=== PATIENT | female | born 1965 | race Caucasian/White ===

== ENCOUNTER 2018-10-11 12:08 | Outpatient (CLI) | payer BC, SELFPAY ==
[2018-10-11 13:04] LABS: Hemoglobin A1C 5.4 % (4.5-6.2)
[2018-10-11 13:23] LABS: Cholesterol 270 mg/dL (50-200); Glucose 86 mg/dL (70-100); HDL Cholesterol 75 mg/dL (40-60); LDL CHOLESTEROL 188 mg/dL (<100); Triglyceride 83 mg/dL (30-150)
== END 2018-10-11 12:28 ==
PROVIDERS: PCP Emergency Medicine; Visit Provider Obstetrics & Gynecology Gynecology
DX: Z00.00 Encounter for general adult medical examination without abnormal findings (principal); Z13.1 Encounter for screening for diabetes mellitus; Z13.220 Encounter for screening for lipoid disorders
CPT/HCPCS: 36415; 80061; 82947; 83721; 83036

== ENCOUNTER 2019-02-12 07:15 | Outpatient (CLI) | payer BC, SELFPAY ==
[2019-02-12 08:06] LABS: Abs Immature Grans 0.01 k/cumm (0.0-0.09); Absolute Basophil Count 0.04 k/cumm (0.0-0.2); Absolute Eosinophil Count 0.16 k/cumm (0.0-0.7); Absolute Lymphocyte Count 2.03 k/cumm (1.2-3.4); Absolute Monocyte Count 0.47 k/cumm (0.11-0.7); Absolute Neutrophil Count 2.93 k/cumm (1.2-6.7); Basophils % 0.7; Eosinophils % 2.8; HCT 41.4 % (36.0-46.0); HGB 13.5 g/dL (12.0-15.5); Immature Grans % 0.2; Mean Corp. HGB Concentration 32.6 g/dL (32.0-36.0); Mean Corpuscular Hemoglobin 31.2 pg (27.0-33.0); Mean Corpuscular Volume 95.6 fL (80-95); Mean Platelet Volume 10.5 fL (8.0-11.0); Monocytes % 8.3; Platelet Count 215 x1000/uL (130-400); RBC 4.33 m/cumm (4.00-5.20); RBC Distribution Width 12.7 % (11.7-14.6); White Blood Cell Count 5.64 k/cumm (4.4-10.8)
[2019-02-12 09:28] LABS: Iron 88 ug/dL (50-175); Total Iron Binding Capacity 333 ug/dL (250-450); Transferrin Sat 26 % (15-50)
[2019-02-12 09:43] LABS: ALT 30 U/L (12-78); AST 14 U/L (15-37); Albumin 3.7 g/dL (3.4-5.0); Alkaline Phosphatase 71 U/L (46-116); Anion Gap 8.8 mmol/L (3-11); BUN 13 mg/dL (7-18); CO2 30.2 mmol/L (21.0-32.0); CREATININE 0.81 mg/dL (0.55-1.02); Calcium 9.4 mg/dL (8.5-10.1); Chloride 104 mmol/L (98-107); Cholesterol 267 mg/dL (50-200); Glucose 95 mg/dL (70-100); HDL Cholesterol 84 mg/dL (40-60); LDL CHOLESTEROL 164 mg/dL (<100); Potassium 4.4 mmol/L (3.5-5.1); Sodium 143 mmol/L (136-145); TSH (W/Ref FT4) 3.37 uIU/mL (0.358-3.74); Total Protein 7.7 g/dL (6.4-8.2); Triglyceride 84 mg/dL (30-150)
== END 2019-02-12 07:35 ==
PROVIDERS: PCP Internal Medicine; Visit Provider Internal Medicine
DX: R42 Dizziness and giddiness (principal); R50.9 Fever, unspecified; E01.0 Iodine-deficiency related diffuse (endemic) goiter
CPT/HCPCS: 36415; 80053; 80061; 83721; 83540; 83550; 84443; 85025

== ENCOUNTER 2019-06-28 03:29 | Outpatient (REF) | payer BC, SELFPAY | END 2019-06-28 03:49 | LOC: LBN 03:29 | PROVIDERS: PCP Internal Medicine; Visit Provider Obstetrics & Gynecology Gynecology | DX: R30.0 Dysuria (principal) | CPT/HCPCS: 87077; 87086; 87186 ==

== ENCOUNTER 2019-08-14 12:02 | Outpatient (CLI) | payer BC, SELFPAY ==
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
--- NOTE | 2019-08-14 12:30 | DI.RAD_ITS ---
EXAM: XR FOOT LT COMPLETE INDICATION: pain R52. COMPARISON: No exams were available for comparison TECHNIQUE: 2D digital imaging was performed. FINDINGS: No fracture or dislocation seen. There are no significant degenerative changes. No bony erosions s een. IMPRESSION: Negative left foot.
== END 2019-08-14 12:22 ==
PROVIDERS: PCP Internal Medicine; Visit Provider Internal Medicine
DX: M79.672 Pain in left foot (principal); M79.671 Pain in right foot; M25.512 Pain in left shoulder; R07.89 Other chest pain
CPT/HCPCS: 71046; 73030; 73630

== ENCOUNTER 2020-09-11 14:42 | Outpatient (REF) | payer BC, SELFPAY ==
--- NOTE | 2020-09-11 14:20 | PAPFT_PTH ---
PATIENT: Aiyana Damian LOC: [facility] U#:[id number] AGE/SX: 54/F ROOM: RE09/11/[address]: Odessa Oscar : 1965 BED: DIS: 09/11/2020 SPEC #: [id number] RECD: 09/11/20 16:00 STATUS: MAURILIO REMichael #: [id number] JORDAN: 09/11/20 14:[address]: Odessa Oscar DEPT: [facility] Cytology RECD BY: Alicia Fernandez ENTERED: 09/11/20 16:01 SP TYPE: PAPFT OTHR DR: Shea Huff, PhD DATABASE MANAGEMENT SYSTEM SPECIALIST Tissues: 1 - CX/ENDOCX FOR PAP SMEARS Procedures: PAP THIN PREP/UVM Screening HPV DNA PROBE Comments: [id number] ([facility])
== END 2020-09-11 15:02 ==
LOC: LBN 14:42
PROVIDERS: PCP Nurse Practitioner; Visit Provider Obstetrics & Gynecology Gynecology
DX: Z12.4 Encounter for screening for malignant neoplasm of cervix (principal); Z11.51 Encounter for screening for human papillomavirus (HPV)
CPT/HCPCS: 88142; 87624

== ENCOUNTER 2020-09-15 02:03 | Outpatient (CLI) | payer BC, SELFPAY ==
[2020-09-15 11:02] LABS: Calculated LDL 202 mg/dL (<100); Cholesterol 311 mg/dL (<200); HDL Cholesterol 84 mg/dL (40-60); Triglyceride 128 mg/dL (<150)
== END 2020-09-15 02:23 ==
PROVIDERS: PCP Nurse Practitioner; Visit Provider Obstetrics & Gynecology Gynecology
DX: E78.5 Hyperlipidemia, unspecified (principal)
CPT/HCPCS: 36415; 80061

== ENCOUNTER 2021-01-15 09:28 | Emergency (ER) | payer BC, SELFPAY ==
[2021-01-15] VITALS (48 sets, daily range): BP systolic 131–182; BP diastolic 75–97; PULSE 54–85; RESP 9–23; TEMP 36.6; O2SAT 96–100
--- NOTE | 2021-01-15 09:30 | RT.EKG_ITS ---
APPROVED REPORT Exam: Resting ECG Patient Location: E HR:55 bpm ECG Measurements Heart Rate 55 AXIS WY 149 P 42 QRSd 81 QRS 26 QT 427 T 30 QTc 409 Conclusion Sinus bradycardia...rate< 60 I have reviewed and interpreted ECG and agree with software generated interpretation. Otherwise normal ECG
--- NOTE | 2021-01-15 09:45 | DI.CT_ITS ---
EXAM: CT THORAX ABD/PEL CTA CLINICAL HISTORY: fam hx of AAA, pt with chest pain. TECHNIQUE: Imaging Protocol: Axial CT angiography was performed with multi-slice acquisition and mu lti-planar and/or 3D reconstructions. CONTRAST MATERIAL: Intravenous: Omnipaque 350 Contrast volume:100 ml COMPARISON: No exams were available for comparison FINDINGS: CHEST: Pulmonary Arteries: No evidence of filling defect to suggest pulmonary emboli. Tracheobronchial tree: Patent where visualized. Mediastinum and Megan: No dominant adenopathy or fluid collection. Pulmonary parenchyma: No consolidation or dominant measurable mass. No architectural distortion. Pleura: No effusion or pneumothorax. Heart: The heart is not dilated. No coronary artery calcifications are seen. Aorta: Thoracic aorta non-dilated. Bones: Normal. ABDOMEN: Liver: Normal density. No measurable mass. Portal, Superior Mesenteric, and Splenic Veins: Unremarkable. Gallbladder and Biliary Tract: No radiodense calculus or dilation. Pancreas: Normal density, no abnormal calcifications or inflammatory process. Spleen: Normal. Adrenals: No masses seen. Kidneys: Normal size, contour and axis. No radiodense stones or obstructive uropathy. No masses seen. Abdominal Aorta: Abdominal portion non-dilated. Minimal calcification distally. Bowel: No obstruction or bowel wall thickening. Appendix is unremarkable. Peritoneal Cavity: No ascites, collection or mesenteric inflammatory response. Lymph Nodes: Within normal limits. Bones: Unremarkable. Soft Tissues: Unremarkable. PELVIS: Bladder: Symmetric distention, no gross wall thickening. Reproductive Organs: Unremarkable as visualized. Lymph Nodes: Within normal limits. Bones: Within normal limits. IMPRESSION: 1. No evidence of pulmonary embolism. Normal diameter aorta without evidence of dissection. 2. No acute abdominal or pelvic process. RADIATION DOSE DELIVERED: 1,045.52mGy.cm Total DLP DATA REPOSITORY: All CT scans at this facility are submitted to the National Radiology Data Registry (NRDR) Dose Index Registry (DIR) with the [employer] (ACR). RADIATION OPTIMIZATION: All CT scans at this facility use at least one of these dose optimization te chniques: automated exposure control; mA and/or kV adjustment per patient size (includes targeted exa ms where dose is matched to clinical indication); or iterative reconstruction.
[2021-01-15 10:11] LABS: Absolute Basophil Count 0.04 10^3/uL (0.0-0.2); Absolute Eosinophil Count 0.06 10^3/uL (0.0-0.7); Absolute Lymphocyte Count 2.39 10^3/uL (1.2-3.4); Absolute Monocyte Count 0.42 10^3/uL (0.1-0.8); Absolute Neutrophil Count 2.31 10^3/uL (1.2-6.7); Basophils % 0.8; Eosinophils % 1.1; HCT 40.8 % (36.0-46.0); HGB 13.5 g/dL (11.2-15.7); Lymphocytes % 45.8; MCH 31.9 pg (27.0-33.0); MCHC 33.1 % (32.0-36.0); MCV 96.5 fL (80-95); MPV 10.5 fL (8.0-11.0); Neutrophils % 44.3; Nucleated RBC 0 %; Platelet Count 255 10^3/uL (130-400); RBC 4.23 10^6/uL (3.93-5.22); RDW-SD 42.5 fL; WBC 5.22 10^3/uL (4.4-10.8)
--- NOTE | 2021-01-15 10:35 | ED.GENADUL_ITS ---
Discharge Plan Discharge Details Chief Complaint: Chest Pain Clinical Impression: Chest pain in adult Primary Care Provider: Shea Huff ED Provider: Patricia Holliday Home Meds and New Rx's Prescriptions: No Action cyanocobalamin (vitamin B-12) [Vitamin B-12] 1,000 MCG tablet 1,000 mcg PO DAILY RF: 0 Discharge Instructions Instructions: Chest Pain (ED) Additional Instructions: Please follow-up with your primary care physician on Monday Return with worsening pain, shortness of breath, or with any new or progressing symptoms Follow-up for your outpatient stress test and return earlier should you have new or worsening complaints Medical Decision Making Patient is alert, pain-free, pleasant in demeanor Heart score of 3, she will need close outpatient follow-up She does have a primary care physician I will order an outpatient stress test She will return should she have worsening or return of pain CTA chest abdomen pelvis did not show acute pathology per radiology interpretation, specifically no evidence of aneurysm Pain-free throughout the entirety of exam Do not give aspirin upon arrival as waiting for CTA T- troponins, 2 - EKG Stress test ordered in the outpatient setting, low threshold to return with new or worsening complaints Discharged home in stable condition, pain-free Differential Diagnosis Differential Diagnosis: Angina, aortic dissection, pleurisy, anxiety HPI This 55-year-old female with history of tendinitis, hyperlipidemia presents with report of chest pain that started at approximately 830 while patient was seated for mass. She denies any associated shortness of breath. She states she felt lightheaded when the symptoms began and mildly nauseous. She states she got intermittent chest pain for the past several months, nonexertional from a partial control. She denies any abdominal pain. She states the pain started in her back and radiated horizontally and went into her chest and also radiated horizontally. She states it lasted approximately 45 minutes but not resolved completely. She states the pain has never been significant before. She has a history of hyperlipidemia and was not started on medication for this. Does not currently have a primary care physician that she is actually 14. She states she had a stress test in her 20s as her brother at age 35. Sounds like he had a heart attack secondary to renal complication. Aunt reportedly at age 55 from a myocardial infarction. Mother has history of atrial fibrillation and father reportedly had an abdominal aortic aneurysm that ruptured which she succumbed at age 68. She does not smoke, drink alcohol, or use any illicit drugs. She denies any calf pain or swelling, recent flights, surgeries, long drives. General Date/Time Provider Initiated Documentation: 01/15/21 09:34 . Related Data Home Medications Medication Instructions Recorded Confirmed cyanocobalamin (vitamin B-12) 1,000 mcg PO DAILY 01/29/16 01/15/21 [Vitamin B-12] Allergies Allergy/AdvReac Type Severity Reaction Status Date / Time ibuprofen [From Motrin] AdvReac Intermediate Vomitting Unverified 01/15/21 09:36 Sulfa (Sulfonamide AdvReac Nausea/rosangela Unverified 01/15/21 09:36 Antibiotics) iness General Stated Complaint: Chest Pain JESSICA: 2 Review of Systems Narrative: Review of systems negative x7 aside from medication in HPI [facility] Medical History (Updated 01/15/21 @ 13:32 by ABHISHEK Mazariegos) GERD (gastroesophageal reflux disease) Hyperplastic polyp of descending colon Surgical History Colonoscopy - [facility] (09/18/17) Family History Mother Personal history of malignant neoplasm BREAST, superficial melanoma Heart disease Grandfather Heart disease Grandmother Stroke Social History Smoking/Tobacco Use Status: Never Second Hand Exposure: No Smoking risk assessment performed?: Yes Alcohol Intake: current Alcohol Intake frequency: holidays/special occasions only Details: monthly or less Drug use: Never Substance use type: does not use Adopted: No Household members: spouse and other Details: [facility] Housing: house Number of Children: 0 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 What is your relationship status?: Panel score (0-1 are the most socially isolated patients): 1 Seatbelt use: always Do you feel safe at home: Yes Do you feel safe in your relationship?: Yes Female Reproductive History Menstrual Duration of menses: other (08/2019 cycles irregular) control method: other (Hx of primary infertility) History History 4 Para Hx # Term Pregnancies 0 Multiple births Hx # Pregnancies Ectopic pregnancies AB induced Hx Number of Living Children AB spontaneous Exam Const General: cooperative and comfortable Chest Chest: normal inspection of the chest and normal palpation of entire chest wall Other: No chest wall tenderness or crepitus Resp Effort & Inspection: normal respiratory effort Auscultation: clear to auscultation bilaterally Cardio Rate: regular rate Rhythm: regular rhythm Other: Distal pulses intact GI Other: Nontender, no abdominal bruit or pulsatile mass, no CVA tenderness Skin General skin exam: no rashes or lesions noted Neuro General: patient alert Speech: speech normal Extrem Other: No calf tenderness or swelling appreciated Course Vital Signs Vital signs: Vital Signs Temperature 36.6 C 01/15/21 09:31 Pulse 70 01/15/21 09:31 Respiratory Rate 18 01/15/21 09:31 Blood Pressure 182/91 H 01/15/21 09:31 Pulse Oximetry 99 01/15/21 09:31 Temperature 36.6 C 01/15/21 09:31 Temperature Source Temporal Artery Scan 01/15/21 09:31 Pulse 69 01/15/21 09:46 Pulse 72 01/15/21 09:46 Respiratory Rate 9 L 01/15/21 09:46 Respiratory Effort Non-Labored 01/15/21 09:38 Respiratory Depth Normal 01/15/21 09:38 Respiratory Pattern Normal 01/15/21 09:38 Blood Pressure 167/97 H 01/15/21 09:46 Blood Pressure Mean 114 01/15/21 09:46 Blood Pressure Position Sitting 01/15/21 09:31 Pulse Oximetry 100 01/15/21 09:40 Oxygen Delivery Method Room Air 01/15/21 09:31 Oxygen Flow Rate 0 01/15/21 09:31 Pain Level 1 01/15/21 09:31 Lab/Test Results Lab/Test Results: Laboratory Tests Range/Units 01/15/21 09:37 WBC (4.4-10.8) 10^3/uL 5.22 RBC (3.93-5.22) 10^6/uL 4.23 Hgb (11.2-15.7) g/dL 13.5 Hct (36.0-46.0) % 40.8 MCV (80-95) fL 96.5 H MCH (27.0-33.0) pg 31.9 MCHC (32.0-36.0) % 33.1 RDW (11.7-14.6) % 12.0 Plt Count (130-400) 10^3/uL 255 MPV (8.0-11.0) fL 10.5 Immature Gran % 0.0 Neutrophils % 44.3 Lymphocytes % 45.8 Monocytes % 8.0 Eosinophils % 1.1 Basophils % 0.8 Nucleated RBC % % 0 Absolute Neutrophils (1.2-6.7) 10^3/uL 2.31 Absolute Lymphocytes (1.2-3.4) 10^3/uL 2.39 Absolute Monocytes (0.1-0.8) 10^3/uL 0.42 Absolute Eosinophils (0.0-0.7) 10^3/uL 0.06 Absolute Basophils (0.0-0.2) 10^3/uL 0.04
[2021-01-15 10:39] LABS: ALT 39 U/L (14-59); AST 20 U/L (15-37); Alkaline Phosphatase 91 U/L (46-116); BUN 12 mg/dL (7-18); CREATININE 0.9 mg/dL (0.55-1.02); Calcium 9.4 mg/dL (8.5-10.1); Chloride 104 mmol/L (98-107); Glucose 108 mg/dL (74-106); Magnesium 2.1 mg/dL (1.8-2.4); Potassium 3.9 mmol/L (3.5-5.1); Sodium 140 mmol/L (136-145); Total Protein 8.3 g/dL (6.4-8.2)
[2021-01-15 10:41] LABS: Troponin I < 0.05 ng/mL (<0.06)
[2021-01-15] MEDS: Normal Saline - Diluent 50 ML VIAL IV (11:07)
[2021-01-15] MEDS: Omnipaque 350 MG/ML 100 ML BTL IJ (11:07)
[2021-01-15] MEDS: Normal Saline 20 ML VIAL IJ (11:08)
[2021-01-15 13:22] LABS: Troponin I < 0.05 ng/mL (<0.06)
== END 2021-01-15 14:06 ==
LOC: ER 09:38
PROVIDERS: Emergency Provider Physician Assistant; PCP Nurse Practitioner
DX: R07.89 Other chest pain (principal)
CPT/HCPCS: 36415; 74177; 80053; 93005; 99285; U0003; 83735; 84484; 85025; 93010; 99284; J3490

== ENCOUNTER 2021-01-18 12:17 | Outpatient (CLI) | payer BC, SELFPAY ==
--- NOTE | 2021-01-18 12:00 | ETT_ITS ---
APPROVED REPORT Exam: Exercise Treadmill Patient Location: Out-Patient Room/Bed: Stress Nurse: Pamela Vega RN Ordering Provider:LISSETT RAI, Contact Number: [phone] BMI: 24.90 Baseline Rhythm: Sinus Bradycardia Indications: Atypical chest pain. Medical History Medical History: HLD, GERD. Cardiac Medications: None., Allergies: Ibuprofen, Sulfa. Cardiac Risk Factors: FHX of CAD, Hyperlipidemia Previous Cardiac Procedures: None Pretest Chest Pain Characteristics: None Exercise History: Sedentary Physical Disabilities: None Lung Sounds: Clear to auscultation Heart Sounds: Regular Stress Test Details Test: Exercise stress testing was performed using a Christopher protocol. Rest Stress HR Resting HR Supine: 59 bpm Max Heart Rate (APMHR): 164 bpm Resting HR Standin bpm Target HR (85% APMHR): 139 bpm Max HR Achieved: 156 bpm % of APMHR: 95 Recovery HR: 85 bpm HR response to stress: Normal HR response to stress BP Resting BP Supine: 138/84 mmHg Resting BP Standin/80 mmHg Max BP: 160/78 mmHg Recovery BP: 140/70 mmHg BP response to stress: Normal blood pressure response to stress. ECG Resting ECG: Sinus Bradycardia Ectopy: None Stress ECG: Sinus Tachycardia ST Change: No significant ST segment changes noted, Horizontal ST depression Lead(s): V4, V5 Stage: [address] Deviation: 1 mm Arrhythmia: PACs, PVCs, Recovery ECG: Sinus Rhythm Recovery ST Change: Horizontal ST depression, No significant ST segment changes noted Recovery Arrhythmia: PACs, Clinical Reason for Termination: Fatigue Stress Symptoms: General Fatigue Exercise duration: 11 min08 sec Highest Stage Reached: Stage 4: 4.2 mph at 16% grade. Exercise capacity: 13.48 METs Weiner Treadmill Score: 6 Rate Pressure Product: [id number] Stress ECG Conclusion 1. The resting electrocardiogram was normal 2. Patient exercised on the Christopher protocol and completed a workload of 13.48 METS, above average exer cise capacity. The test was stopped due to fatigue 3. Heart rate and blood pressure response to exercise was normal. The patient achieved 95% of predic lianna heart rate for age 4. Electrocardiographically the test was negative for myocardial ischemia 5. Atrial and ventricular dysrhythmias were described but not recorded Weiner Treadmill Score is 6 which is Low risk. Stress Test Summary STAGE Time (mins) Speed (mph) Grade (%) HR BP SYMPTOMS METS Supine 59 138/84 Standing 79 130/80 1 3 1.7 10 91 148/80 4.6 2 6 2.5 12 105 160/78 7 3 9 3.4 14 132 10.2 1 min recovery 125 150/66 patient reports dizziness. 3 min recovery 84 146/68 symptoms resolved. 6 min recovery 85 140/70
== END 2021-01-18 12:37 ==
PROVIDERS: PCP Nurse Practitioner; Visit Provider Physician Assistant
DX: R07.89 Other chest pain (principal); Z82.49 Family history of ischemic heart disease and other diseases of the circulatory system; E78.5 Hyperlipidemia, unspecified
CPT/HCPCS: 93017

== ENCOUNTER 2021-02-05 01:38 | Outpatient (CLI) | payer BC, SELFPAY ==
[2021-02-05 12:42] LABS: Calculated LDL 190 mg/dL (<100); Cholesterol 292 mg/dL (<200); HDL Cholesterol 83 mg/dL (40-60); Triglyceride 99 mg/dL (<150)
== END 2021-02-05 01:39 | disposition home or self-care (01) ==
PROVIDERS: PCP Nurse Practitioner; Visit Provider Nurse Practitioner
DX: Z13.6 Encounter for screening for cardiovascular disorders (principal)
CPT/HCPCS: 36415; 80061

== ENCOUNTER 2022-07-08 15:45 | Outpatient (REF) | payer BC, SELFPAY | END 2022-07-08 15:46 | disposition home or self-care (01) | LOC: LBN 15:45 | PROVIDERS: PCP Nurse Practitioner; Visit Provider Advanced Practice Midwife | DX: N89.8 Other specified noninflammatory disorders of vagina (principal); R39.89 Other symptoms and signs involving the genitourinary system | CPT/HCPCS: 87086; 87480; 87510; 87660 ==

== ENCOUNTER 2022-08-24 18:59 | Outpatient (REF) | payer BC, SELFPAY | END 2022-08-24 19:00 | disposition home or self-care (01) | LOC: LBN 18:59 | PROVIDERS: PCP Nurse Practitioner; Visit Provider Obstetrics & Gynecology Gynecology | DX: D75.89 Other specified diseases of blood and blood-forming organs (principal); R30.0 Dysuria | CPT/HCPCS: 87086 ==

== ENCOUNTER 2022-08-26 01:48 | Outpatient (CLI) | payer BC, SELFPAY ==
[2022-08-26 11:21] LABS: HCT 39.7 % (36.0-46.0); HGB 13.1 g/dL (11.2-15.7); MCH 31.6 pg (27.0-33.0); MCV 96 fL (80-95); MPV 10.6 fL (8.0-11.0); Platelet Count 218 10^3/uL (130-400); RBC 4.14 10^6/uL (3.93-5.22); RDW 12.5 % (11.7-14.6); RDW-SD 44.1 fL; WBC 5.28 10^3/uL (4.4-10.8)
[2022-08-26 11:57] LABS: Calculated LDL 169 mg/dL (<100); Cholesterol 268 mg/dL (<200); HDL Cholesterol 80 mg/dL (40-60); Triglyceride 95 mg/dL (<150)
[2022-08-26 12:20] LABS: Anion Gap 7.4 mmol/L (3-11); BUN 13 mg/dL (7-18); CO2 29.6 mmol/L (21.0-32.0); CREATININE 0.8 mg/dL (0.55-1.02); Calcium 9.5 mg/dL (8.5-10.1); Chloride 106 mmol/L (98-107); Estimated GFR 85.89 (mL/min/1.73m2); Folate 19.5 ng/mL (8.6-20.0); Glucose 93 mg/dL (74-106); Sodium 143 mmol/L (136-145); Vitamin B12 709 pg/mL (193-986)
== END 2022-08-26 01:49 | disposition home or self-care (01) ==
LOC: LBO 01:48
PROVIDERS: PCP Nurse Practitioner; Visit Provider Obstetrics & Gynecology Gynecology
DX: Z13.1 Encounter for screening for diabetes mellitus (principal); D75.89 Other specified diseases of blood and blood-forming organs; R30.0 Dysuria
CPT/HCPCS: 36415; 80048; 80061; 85027; 82607; 82746

== ENCOUNTER → 2022-08-30 01:18 | Outpatient (CLI) | payer BC, SELFPAY ==
--- NOTE | 2022-08-30 07:30 | DI.MAMMO_ITS ---
Exam(s) MAMMO SCREENING EXAM: MAMMO SCREENING CLINICAL HISTORY: screening,z12.39 TECHNIQUE: Mammograms were interpreted according to the usual protocol including computer analysis w [employer] CAD system, tomosynthesis and C-view imaging. COMPARISON: 2009 through 2015 from [facility] FINDINGS: The breasts are composed of heterogeneously dense fibroglandular densities, Breast Density category C . No suspicious masses or suspicious microcalcifications are seen. No skin thickening or abnormal axillary lymph nodes are seen. There has been no significant change from prior exams. IMPRESSION: BI-RADS Category 1, Negative mammogram. Yearly screening mammography is recommended. Breast Density Category C, heterogeneously Dense. The mammogram demonstrates the patient's breast tissue is dense. Dense breast tissue is very common a nd is not abnormal but dense breast tissue can make it harder to find cancer on a mammogram. Also, de nse breast tissue may increase breast cancer risk. This information about the result of the mammogram report was provided to the patient to raise their awareness. Use this report when you speak with the patient about their risks for breast cancer, which includes their family history. At that time, you may recommend additional screening tests (Ultrasound or MRI) as they might be useful based on their r isk. A negative radiographic report should not delay biopsy if a dominant or clinically suspicious mass is present. Up to ten percent of cancers are not identified on mammography. A negative report may reinforce clinical impression. Adenosis and dense breasts may obscure an underlying neoplasm. False positive reports average 6 to 10%.
== END ==
PROVIDERS: PCP Nurse Practitioner; Visit Provider Nurse Practitioner
DX: Z12.31 Encounter for screening mammogram for malignant neoplasm of breast (principal)
CPT/HCPCS: 77063; 77067

== ENCOUNTER 2022-10-26 16:13 | Outpatient (REF) | payer BC, SELFPAY ==
[2022-10-28 14:13] LABS: Chlamydia Result Negative (Negative); GC Result Negative (Negative)
== END 2022-10-26 16:14 | disposition home or self-care (01) ==
LOC: LBN 16:13
PROVIDERS: PCP Nurse Practitioner Family; Visit Provider Obstetrics & Gynecology Gynecology
DX: N89.8 Other specified noninflammatory disorders of vagina (principal)
CPT/HCPCS: 87491; 87591; 87480; 87510; 87660

== ENCOUNTER 2023-04-20 11:01 | Outpatient (CLI) | payer BC, SELFPAY ==
[2023-04-20 12:50] LABS: HCT 40.2 % (36.0-46.0); HGB 13.2 g/dL (11.2-15.7); MCH 31.5 pg (27.0-33.0); MCHC 32.8 % (32.0-36.0); MCV 96 fL (80-95); MPV 10.9 fL (8.0-11.0); Platelet Count 243 10^3/uL (130-400); RBC 4.19 10^6/uL (3.93-5.22); RDW 12.2 % (11.7-14.6); RDW-SD 42.5 fL; WBC 6.02 10^3/uL (4.4-10.8)
[2023-04-20 13:24] LABS: Anion Gap 7.3 mmol/L (3-11); BUN 14 mg/dL (7-18); CO2 29.7 mmol/L (21.0-32.0); CREATININE 0.7 mg/dL (0.55-1.02); Calcium 9.7 mg/dL (8.5-10.1); Calculated LDL 192 mg/dL (<100); Chloride 105 mmol/L (98-107); Cholesterol 305 mg/dL (<200); Estimated GFR 100.19 (mL/min/1.73m2); Glucose 85 mg/dL (74-106); HDL Cholesterol 98 mg/dL (40-60); Potassium 4.3 mmol/L (3.5-5.1); Sodium 142 mmol/L (136-145); TSH (W/Ref FT4) 5.12 uIU/mL (0.36-3.74); Triglyceride 78 mg/dL (<150)
[2023-04-20 13:37] LABS: Hemoglobin A1C 5.6 % (<5.7)
[2023-04-20 13:40] LABS: FREE T4 0.62 ng/dL (0.76-1.46)
== END 2023-04-20 11:02 | disposition home or self-care (01) ==
LOC: LOS 11:02
PROVIDERS: PCP Nurse Practitioner Family; Visit Provider Nurse Practitioner Family
DX: Z00.00 Encounter for general adult medical examination without abnormal findings (principal); E78.5 Hyperlipidemia, unspecified; E04.9 Nontoxic goiter, unspecified; Z13.1 Encounter for screening for diabetes mellitus
CPT/HCPCS: 36415; 80048; 80061; 85027; 83036; 84439; 84443

== ENCOUNTER 2023-11-07 13:25 | Outpatient (REF) | payer BC, SELFPAY ==
--- NOTE | 2023-11-07 11:15 | PAPFT_PTH ---
PATIENT: Aiyana Damian LOC: [facility] U#:[id number] AGE/SX: 58/F ROOM: RE11/07/[address]: Odessa Oscar : 1965 BED: DIS: 11/07/2023 SPEC #: [id number] RECD: 11/07/23 18:15 STATUS: NOELBlayne LUCERO #: [id number] JORDAN: 11/07/23 11:[address]: Odessa Oscar DEPT: [facility] Cytology RECD BY: Patricia Fried ENTERED: 11/07/23 18:15 SP TYPE: PAPFT OTHR DR: Sona Garcia, LOG SNAKER Tissues: 1 - CX/ENDOCX FOR PAP SMEARS Procedures: PAP THIN PREP/UVM Screening HPV DNA PROBE Comments: [id number]
== END 2023-11-07 13:26 | disposition home or self-care (01) ==
LOC: LBN 13:25
PROVIDERS: PCP Nurse Practitioner Family; Visit Provider Obstetrics & Gynecology Gynecology
DX: Z12.4 Encounter for screening for malignant neoplasm of cervix (principal); Z11.51 Encounter for screening for human papillomavirus (HPV)
CPT/HCPCS: 88142; 87624

== ENCOUNTER → 2023-11-08 01:47 | Outpatient (CLI) | payer BC, SELFPAY ==
--- NOTE | 2023-11-08 13:00 | DI.MAMMO_ITS ---
Exam(s) MAMMO SCREENING EXAM: MAMMO SCREENING CLINICAL HISTORY: screening TECHNIQUE: Mammograms were interpreted according to the usual protocol including computer analysis w [employer] CAD system, tomosynthesis and C-view imaging. COMPARISON: 2015 through 2021 FINDINGS: The breasts are composed of heterogeneously dense fibroglandular densities, Breast Density category C . No suspicious masses or suspicious microcalcifications are seen. No skin thickening or abnormal axillary lymph nodes are seen. There has been no significant change from prior exams. IMPRESSION: BI-RADS Category 1, Negative mammogram. Yearly screening mammography is recommended. Breast Density Category C, heterogeneously Dense. The mammogram demonstrates the patient's breast tissue is dense. Dense breast tissue is very common a nd is not abnormal but dense breast tissue can make it harder to find cancer on a mammogram. Also, de nse breast tissue may increase breast cancer risk. This information about the result of the mammogram report was provided to the patient to raise their awareness. Use this report when you speak with the patient about their risks for breast cancer, which includes their family history. At that time, you may recommend additional screening tests (Ultrasound or MRI) as they might be useful based on their r isk. A negative radiographic report should not delay biopsy if a dominant or clinically suspicious mass is present. Up to ten percent of cancers are not identified on mammography. A negative report may reinforce clinical impression. Adenosis and dense breasts may obscure an underlying neoplasm. False positive reports average 6 to 10%.
== END ==
PROVIDERS: PCP Nurse Practitioner Family; Visit Provider Obstetrics & Gynecology Gynecology
DX: Z12.31 Encounter for screening mammogram for malignant neoplasm of breast (principal)
CPT/HCPCS: 77063; 77067

== ENCOUNTER 2023-11-08 04:48 | Outpatient (CLI) | payer BC, SELFPAY ==
[2023-11-08 14:10] LABS: TSH (W/Ref FT4) 4.94 uIU/mL (0.36-3.74)
[2023-11-08 14:26] LABS: FREE T4 0.63 ng/dL (0.76-1.46)
== END 2023-11-08 04:49 | disposition home or self-care (01) ==
LOC: LBO 04:48
PROVIDERS: PCP Nurse Practitioner Family; Visit Provider Obstetrics & Gynecology Gynecology
DX: E03.9 Hypothyroidism, unspecified (principal)
CPT/HCPCS: 36415; 84439; 84443

== ENCOUNTER 2024-07-30 02:29 | Outpatient (CLI) | payer BC, SELFPAY ==
[2024-07-30 10:33] LABS: ALT 31 U/L (14-59); AST 19 U/L (15-37); Alkaline Phosphatase 86 U/L (46-116); Anion Gap 7.9 mmol/L (3-11); BUN 19 mg/dL (7-18); Bilirubin, Total 1.11 mg/dL (0.2-1.0); CO2 29.1 mmol/L (21.0-32.0); CREATININE 0.9 mg/dL (0.55-1.02); Calcium 9.3 mg/dL (8.5-10.1); Calculated LDL 198 mg/dL (<100); Chloride 106 mmol/L (98-107); Cholesterol 316 mg/dL (<200); Estimated GFR 73.64 (mL/min/1.73m2); Glucose 95 mg/dL (74-106); HDL Cholesterol 107 mg/dL (40-60); Potassium 4.2 mmol/L (3.5-5.1); Sodium 143 mmol/L (136-145); Total Protein 8.1 g/dL (6.4-8.2); Triglyceride 56 mg/dL (<150)
[2024-07-30 12:22] LABS: FREE T4 0.61 ng/dL (0.76-1.46)
== END 2024-07-30 02:30 | disposition home or self-care (01) ==
LOC: LBO 02:29
PROVIDERS: PCP Nurse Practitioner Family; Visit Provider Nurse Practitioner Family
DX: E03.9 Hypothyroidism, unspecified (principal); E78.5 Hyperlipidemia, unspecified; Z00.00 Encounter for general adult medical examination without abnormal findings; E04.9 Nontoxic goiter, unspecified
CPT/HCPCS: 36415; 80053; 80061; 84439; 84443; 84481

== ENCOUNTER 2024-11-14 16:12 | Outpatient (REF) | payer BC, SELFPAY | END 2024-11-14 16:13 | disposition home or self-care (01) | LOC: LBN 16:12 | PROVIDERS: PCP Nurse Practitioner Family; Visit Provider Obstetrics & Gynecology Gynecology | DX: R10.9 Unspecified abdominal pain (principal) | CPT/HCPCS: 87086 ==

== ENCOUNTER 2024-12-13 00:17 | Outpatient (CLI) | payer BC, SELFPAY ==
--- NOTE | 2024-12-13 07:15 | DI.MAMMO_ITS ---
Exam(s) MAMMO SCREENING EXAM: MAMMO SCREENING CLINICAL HISTORY: screening,z12.39 TECHNIQUE: Mammograms were interpreted according to the usual protocol including computer analysis w [employer] CAD system, tomosynthesis and C-view imaging. COMPARISON: 2015 through 2023 FINDINGS: The breasts are composed of heterogeneously dense fibroglandular densities, Breast Density category C . No suspicious masses or suspicious microcalcifications are seen. No skin thickening or abnormal axillary lymph nodes are seen. There has been no significant change from prior exams. IMPRESSION: BI-RADS Category 1, Negative mammogram. Yearly screening mammography is recommended. Breast Density Category C, heterogeneously Dense. The mammogram demonstrates the patient's breast tissue is dense. Dense breast tissue is very common a nd is not abnormal but dense breast tissue can make it harder to find cancer on a mammogram. Also, de nse breast tissue may increase breast cancer risk. This information about the result of the mammogram report was provided to the patient to raise their awareness. Use this report when you speak with the patient about their risks for breast cancer, which includes their family history. At that time, you may recommend additional screening tests (Ultrasound or MRI) as they might be useful based on their r isk. A negative radiographic report should not delay biopsy if a dominant or clinically suspicious mass is present. Up to ten percent of cancers are not identified on mammography. A negative report may reinforce clinical impression. Adenosis and dense breasts may obscure an underlying neoplasm. False positive reports average 6 to 10%.
== END 2024-12-13 00:37 ==
LOC: DI 00:17
PROVIDERS: PCP Nurse Practitioner Family; Visit Provider Obstetrics & Gynecology Gynecology
DX: Z12.31 Encounter for screening mammogram for malignant neoplasm of breast (principal); R92.333 Mammographic heterogeneous density, bilateral breasts
CPT/HCPCS: 77063; 77067

== ENCOUNTER 2024-12-13 01:13 | Outpatient (CLI) | payer BC, SELFPAY ==
[2024-12-13 13:13] LABS: TSH (W/Ref FT4) 4.89 uIU/mL (0.36-3.74)
[2024-12-13 13:36] LABS: FREE T4 0.68 ng/dL (0.76-1.46)
[2024-12-13 22:31] LABS: Prolactin 4.1 ng/mL (See Note)
== END 2024-12-13 01:14 | disposition home or self-care (01) ==
LOC: LBO 01:13
PROVIDERS: PCP Nurse Practitioner Family; Visit Provider Obstetrics & Gynecology Gynecology
DX: Z86.018 Personal history of other benign neoplasm (principal); E03.9 Hypothyroidism, unspecified
CPT/HCPCS: 36415; 84146; 84439; 84443

== ENCOUNTER 2024-12-30 13:56 | Outpatient (CLI) | payer BC, SELFPAY ==
[2024-12-30 15:29] LABS: TSH (W/Ref FT4) 1.74 uIU/mL (0.36-3.74)
== END 2024-12-30 13:57 | disposition home or self-care (01) ==
LOC: LBO 13:57
PROVIDERS: PCP Nurse Practitioner Family; Visit Provider Obstetrics & Gynecology Gynecology
DX: E03.9 Hypothyroidism, unspecified (principal)
CPT/HCPCS: 36415; 84443

== ENCOUNTER 2025-01-30 16:39 | Outpatient (CLI) | payer BC, SELFPAY ==
[2025-01-30 18:16] LABS: TSH (W/Ref FT4) 2.93 uIU/mL (0.36-3.74)
== END 2025-01-30 16:40 | disposition home or self-care (01) ==
LOC: LBO 16:39
PROVIDERS: PCP Nurse Practitioner Family; Visit Provider Obstetrics & Gynecology Gynecology
DX: E03.9 Hypothyroidism, unspecified (principal)
CPT/HCPCS: 36415; 84443

== ENCOUNTER 2025-03-20 18:59 | Outpatient (REF) | payer BC, SELFPAY ==
[2025-03-20 21:12] LABS: Bilirubin Negative (Negative); Blood Moderate (Negative); Clarity Clear (Clear); Glucose Negative (Negative); Ketones Negative (Negative); Leukocyte Esterase Small (Negative); Nitrite Negative (Negative); Specific Gravity 1.025 (1.005-1.025); Urobilinogen 0.2 mg/dL (Up to 0.2)
[2025-03-20 21:25] LABS: Bacteria Negative HPF (Negative); C & S Indicated? Yes; Crystals Few Calcium Oxalate HPF (Negative); Epithelial Cells Few HPF (Negative); Mucus Negative (Negative); Other Cells Rare Transitional (Negative)
== END 2025-03-20 19:00 | disposition home or self-care (01) ==
LOC: LBN 18:59
PROVIDERS: PCP Nurse Practitioner Family; Visit Provider Nurse Practitioner Family
DX: R39.9 Unspecified symptoms and signs involving the genitourinary system (principal); R82.89 Other abnormal findings on cytological and histological examination of urine; N39.0 Urinary tract infection, site not specified
CPT/HCPCS: 81003; 81015; 87086

== ENCOUNTER 2025-04-28 13:31 | Outpatient (CLI) | payer BC, SELFPAY ==
[2025-04-28 13:02] LABS: HCT 39.7 % (36.0-46.0); HGB 12.9 g/dL (11.2-15.7); MCH 31.2 pg (27.0-33.0); MCHC 32.5 % (32.0-36.0); MCV 96 fL (80-95); Platelet Count 253 10^3/uL (130-400); RBC 4.14 10^6/uL (3.93-5.22); RDW 12.2 % (11.7-14.6); RDW-SD 42.6 fL; WBC 6.21 10^3/uL (4.4-10.8)
[2025-04-28 13:30] LABS: Hemoglobin A1C 5.7 % (<5.7)
[2025-04-28 14:09] LABS: ALT 36 U/L (14-59); AST 22 U/L (15-37); Albumin 3.9 g/dL (3.4-5.0); Alkaline Phosphatase 97 U/L (46-116); Anion Gap 9.5 mmol/L (3-11); BUN 16 mg/dL (7-18); Bilirubin, Total 0.7 mg/dL (0.2-1.0); CO2 28.5 mmol/L (21.0-32.0); CREATININE 0.7 mg/dL (0.55-1.02); Calcium 9.4 mg/dL (8.5-10.1); Chloride 105 mmol/L (98-107); Estimated GFR 98.95 (mL/min/1.73m2); Glucose 90 mg/dL (74-106); Sodium 143 mmol/L (136-145); TSH 3.14 uIU/mL (0.36-3.74); Total Protein 7.9 g/dL (6.4-8.2)
[2025-04-28 14:21] LABS: Calculated LDL 186 mg/dL (<100); Cholesterol 287 mg/dL (<200); HDL Cholesterol 84 mg/dL (>or=50); T4 5.2 ug/dL (4.7-13.3); Triglyceride 89 mg/dL (<150)
[2025-04-28 22:12] LABS: T3,Free 4.8 pg/mL (2.8-5.3)
[2025-04-29 09:03] LABS: Parathyroid Hormone,Intact 54 pg/mL (19-88); Thyroglobulin Antibody <15 U/mL (<=60); Thyroperoxidase Antibody 703 U/mL (<=60)
== END 2025-04-28 13:32 | disposition home or self-care (01) ==
LOC: LBO 13:33
PROVIDERS: PCP Nurse Practitioner Family; Visit Provider Nurse Practitioner Family
DX: E07.9 Disorder of thyroid, unspecified (principal); E03.9 Hypothyroidism, unspecified; E04.9 Nontoxic goiter, unspecified; Z00.00 Encounter for general adult medical examination without abnormal findings; R73.09 Other abnormal glucose; E78.5 Hyperlipidemia, unspecified
CPT/HCPCS: 36415; 80053; 80061; 85027; 86376; 83036; 83970; 84436; 84443; 84481

== ENCOUNTER 2025-06-16 12:00 | Outpatient (REF) | payer BC, SELFPAY | END 2025-06-16 12:01 | disposition home or self-care (01) | LOC: LBN 12:00 | PROVIDERS: PCP Nurse Practitioner Family; Visit Provider Internal Medicine Endocrinology, Diabetes & Metabolism | DX: R63.5 Abnormal weight gain (principal) | CPT/HCPCS: 82530 ==

== ENCOUNTER 2025-06-27 18:14 | Outpatient (REF) | payer BC, SELFPAY ==
[2025-06-27 21:33] LABS: Glucose Negative (Negative)
[2025-06-27 21:40] LABS: WBC Negative HPF (0-5)
[2025-06-27 21:41] LABS: C & S Indicated? No
== END 2025-06-27 18:15 | disposition home or self-care (01) ==
LOC: LBN 18:14
PROVIDERS: PCP Nurse Practitioner Family; Visit Provider Family Medicine
DX: R30.0 Dysuria (principal); R82.89 Other abnormal findings on cytological and histological examination of urine
CPT/HCPCS: 81003; 81015

== ENCOUNTER 2025-06-30 09:31 | Outpatient (CLI) | payer BC, SELFPAY ==
--- NOTE | 2025-06-30 09:55 | DI.RAD_ITS ---
Exam(s) XR SACROILIAC JOINTS XR HIP RT COMPLETE AP PELVIS EXAM: XR HIP RT COMPLETE AP PELVIS and XR sacroiliac joints CLINICAL HISTORY: right hip pain, SACROILIAC JOINT PAIN, M53.3. TECHNIQUE: 2D digital imaging was performed of the sacroiliac joints and right hip. Five images were obtained. AP pelvis, lateral right hip and AP and obliques of the sacroiliac joints views were obtained. COMPARISON: There are no priors for comparison. FINDINGS: BONES: No acute fracture is present. No bony destructive lesion is seen. JOINTS: No dislocation present. The hips are well maintained. There are mild degenerative changes seen in the right sacroiliac joint. There is no ankylosis or erosion of the sacroiliac joints. Degenerative changes are seen at the L5-S1 disc space. SOFT TISSUE: Normal. IMPRESSION: 1. Unremarkable right hip. 2. Degenerative changes seen in the lumbosacral spine and the right sacroiliac joint. DATA REPOSITORY: RADIATION DOSE DELIVERED:
== END 2025-06-30 09:51 ==
LOC: DI 09:32
PROVIDERS: PCP Nurse Practitioner Family; Visit Provider Family Medicine
DX: M53.3 Sacrococcygeal disorders, not elsewhere classified (principal)
CPT/HCPCS: 72202; 73502

== ENCOUNTER 2025-06-30 14:27 | Outpatient (CLI) | payer BC, SELFPAY ==
[2025-06-30 12:04] LABS: Anion Gap 9.2 mmol/L (3-11); BUN 12 mg/dL (7-18); CO2 28.8 mmol/L (21.0-32.0); Calcium 9.6 mg/dL (8.5-10.1); Chloride 105 mmol/L (98-107); Estimated GFR 84.30 (mL/min/1.73m2); Glucose 105 mg/dL (74-106); Potassium 3.9 mmol/L (3.5-5.1); Sodium 143 mmol/L (136-145); TSH 3.29 uIU/mL (0.36-3.74)
[2025-06-30 17:55] LABS: T3,Free 4.1 pg/mL (2.8-5.3)
[2025-07-02 13:13] LABS: Adrenocorticotropic Hormone, P 9.0 pg/mL
== END 2025-06-30 14:28 | disposition home or self-care (01) ==
LOC: LBO 14:27
PROVIDERS: PCP Nurse Practitioner Family; Visit Provider Internal Medicine Endocrinology, Diabetes & Metabolism
DX: E27.9 Disorder of adrenal gland, unspecified (principal); E03.9 Hypothyroidism, unspecified
CPT/HCPCS: 36415; 80048; 82533; 82024; 84439; 84443; 84481

== ENCOUNTER 2025-08-21 10:50 | Outpatient (CLI) | payer BC, SELFPAY ==
[2025-08-21 18:46] LABS: TSH 2.67 uIU/mL (0.36-3.74)
[2025-08-22 17:53] LABS: T3, Total 92 ng/dL (82-158)
== END 2025-08-21 10:51 | disposition home or self-care (01) ==
LOC: LBO 09-16 10:50
PROVIDERS: PCP Nurse Practitioner Family; Visit Provider Internal Medicine Endocrinology, Diabetes & Metabolism
DX: E03.9 Hypothyroidism, unspecified (principal); E27.49 Other adrenocortical insufficiency
CPT/HCPCS: 36415; 82533; 84439; 84443; 84480; 86376

== ENCOUNTER 2025-10-22 00:49 | Outpatient (CLI) | payer BC, SELFPAY ==
[2025-10-22 09:10] LABS: TSH 3.88 uIU/mL (0.55-4.78)
[2025-10-22 19:12] LABS: T3, Total 95 ng/dL (82-158)
[2025-10-24 10:24] LABS: Adrenocorticotropic Hormone, P 12 pg/mL
== END 2025-10-22 00:50 | disposition home or self-care (01) ==
LOC: LBO 00:49
PROVIDERS: PCP Nurse Practitioner Family; Visit Provider Internal Medicine Endocrinology, Diabetes & Metabolism
DX: E27.49 Other adrenocortical insufficiency (principal); E03.9 Hypothyroidism, unspecified
CPT/HCPCS: 36415; 82533; 82024; 84439; 84443; 84480; 86376